=== PATIENT | male | born 1965 | race Caucasian/White ===

== ENCOUNTER 2021-04-14 08:49 | Outpatient (CLI) | payer SELFPAY ==
[2021-04-14 09:42] LABS: Troponin(5th) Baseline 6 ng/L (0-15)
== END 2021-04-14 08:50 | disposition home or self-care (01) ==
LOC: LAB 08:51
PROVIDERS: PCP Family Medicine; Visit Provider Family Medicine
DX: I10 Essential (primary) hypertension (principal)
CPT/HCPCS: 84484

== ENCOUNTER 2021-04-14 09:15 | Outpatient (CLI) | payer SELFPAY ==
--- NOTE | 2021-04-14 09:31 | XR_ITS ---
WS: [id number] Chest 2 views, 04/14/2021 Clinical Data: SHORTNESS OF BREATH Comparison: None. Findings: No nodules, masses or effusions are seen. The heart is normal. The pulmonary vascularity is not increased. No pneumonia or pneumothorax is seen. XR/XR chest 2V* [id number] Impression: Negative chest.
== END 2021-04-14 09:16 | disposition home or self-care (01) ==
PROVIDERS: PCP Family Medicine; Visit Provider Clinical Nurse Specialist Adult Health
DX: R06.02 Shortness of breath (principal)
CPT/HCPCS: 71046

== ENCOUNTER 2025-08-30 09:11 | Outpatient (CLI) | payer SELFPAY ==
--- NOTE | 2025-08-30 09:30 | MR_ITS ---
WS: [id number] MRI LEFT KNEE NONCONTRAST TECHNIQUE: Axial PD, coronal PD fat sat, coronal PD, sagittal PD, and sagittal PD fat-sat images obtained. CLINICAL INFORMATION: M25.462 - Effusion, left knee COMPARISON: None. FINDINGS: Images limited due to susceptibility artifact from hardware Moderate suprapatellar effusion. Moderate to advanced degenerative narrowing at the patellofemoral articulation. Grade III chondromalacia patella. Distal quadriceps and patella tendons are intact. ACL not well visualized due to artifact. PCL appears intact. Medial and lateral meniscus appear grossly intact. Fibular head appears normal. Soft tissue edema within the subcutaneous and deep soft tissues about the knee also involving the popliteal fossa. Recommend correlation for cellulitis. Recommend plain film correlation to evaluate for hardware loosening. Femoral shaft not well evaluated due to significant artifact. Cavitation about the distal femoral akin although not well evaluated and indeterminant MR/MR knee LT wo con* [id number] IMPRESSION: Images are significantly limited due to susceptibility artifact fro m femoral akin. 1. Moderate suprapatellar effusion with somewhat complex appearance with some internal septations and debris. 2. Diffuse soft tissue edema about the knee involving the subcutaneous and justino p soft tissues. Recommend correlation for infection/cellulitis. 3. Bony cavitation about the distal femoral akin although not well evaluated an d indeterminate due to significant artifact. Recommend further evaluation with radiograph and possibly CT. Osteomyelitis would be a consideration with hardwar e and infection but distal cavitation indeterminate on this study 4. No other acute findings. Outbridge grading: grade III: partial-thickness cartilage loss with focal ulcer ation
== END 2025-08-30 09:12 | disposition home or self-care (01) ==
PROVIDERS: PCP Family Medicine; Visit Provider Family Medicine
DX: M25.462 Effusion, left knee (principal); M22.42 Chondromalacia patellae, left knee; L97.829 Non-pressure chronic ulcer of other part of left lower leg with unspecified severity
CPT/HCPCS: 73721